=== PATIENT | female | born 1985 | race Caucasian/White ===

== ENCOUNTER 2020-09-09 19:52 | Emergency (ER) | payer OTHER ==
[~2020-09-09] VITALS: Ht 170.2 cm; Wt 58.5 kg
[2020-09-09] MEDS ORDERED: CELEXA40 MG PO (20:13)
[2020-09-09] MEDS ORDERED: ATIVAN2 M1 PO (20:13)
[2020-09-09] MEDS ORDERED: SEROQUEL XR150 MG PO (20:13)
== END 2020-09-09 21:55 | disposition home or self-care (01) ==
LOC: ER 19:52
DX: T74.11XA Adult physical abuse, confirmed, initial encounter (principal); S00.83XA Contusion of other part of head, initial encounter; S10.83XA Contusion of other specified part of neck, initial encounter; S05.12XA Contusion of eyeball and orbital tissues, left eye, initial encounter; S40.022A Contusion of left upper arm, initial encounter; S40.021A Contusion of right upper arm, initial encounter; F32.89 Other specified depressive episodes; Y04.2XXA Assault by strike against or bumped into by another person, initial encounter; Y07.02 Wife, perpetrator of maltreatment and neglect

== ENCOUNTER 2020-12-03 16:54 | Emergency (ER) | payer OTHER ==
[~2020-12-03] VITALS: Ht 172.7 cm; Wt 54.4 kg
[~2020-12-03 16:54] MED LIST: ATIVAN2 M1 PO; CELEXA40 MG PO; SEROQUEL XR150 MG PO
== END 2020-12-03 19:56 | disposition home or self-care (01) ==
LOC: ER 16:54
DX: S01.02XA Laceration with foreign body of scalp, initial encounter (principal); S20.222A Contusion of left back wall of thorax, initial encounter; S20.212A Contusion of left front wall of thorax, initial encounter; X93.XXXA Assault by handgun discharge, initial encounter; Y93.89 Activity, other specified; Y92.098 Other place in other non-institutional residence as the place of occurrence of the external cause; Y99.8 Other external cause status

== ENCOUNTER 2020-12-12 15:38 | Emergency (ER) | payer OTHER ==
[~2020-12-12] VITALS: Ht 172.7 cm; Wt 56.7 kg
== END 2020-12-12 18:31 | disposition home or self-care (01) ==
LOC: ER 15:38
DX: Z48.02 Encounter for removal of sutures (principal)

== ENCOUNTER → 2021-01-28 | Emergency (ER) | payer OTHER ==
[~2021-01-28] VITALS: Ht 172.7 cm; Wt 54.0 kg
[~2021-01-28] MED LIST changes: +AUGMENTIN XR 11 EACH
== END | disposition home or self-care (01) ==
LOC: ER 09:38
DX: G44.209 Tension-type headache, unspecified, not intractable (principal); F41.1 Generalized anxiety disorder